=== PATIENT | male | born 1995 | race Caucasian/White ===

== ENCOUNTER 2017-11-03 16:45 | Emergency (ER) | payer SELFPAY ==
[2017-11-03] MEDS ORDERED: Ketorolac Tromethamine 30 MG/ML VIAL ONE (17:39)
== END 2017-11-03 17:51 | disposition home or self-care (01) ==
LOC: ERS 16:45
DX: K02.9 Dental caries, unspecified (principal); H65.91 Unspecified nonsuppurative otitis media, right ear; F17.210 Nicotine dependence, cigarettes, uncomplicated
CPT/HCPCS: 99282; J1885

== ENCOUNTER 2023-04-10 20:58 | Emergency (ER) | payer SELFPAY ==
[2023-04-11 00:18] LABS: SARS-CoV-2 NAA Rapid Test Not Detected (NotDetected)
== END 2023-04-10 22:37 | disposition home or self-care (01) ==
LOC: ERS 20:58
DX: B34.9 Viral infection, unspecified (principal); F17.210 Nicotine dependence, cigarettes, uncomplicated; Z20.822 Contact with and (suspected) exposure to COVID-19
CPT/HCPCS: 99283

== ENCOUNTER 2023-07-07 20:58 | Emergency (ER) | payer SELFPAY | END 2023-07-07 21:40 | disposition home or self-care (01) | LOC: ERS 20:58 | DX: R11.2 Nausea with vomiting, unspecified (principal) | CPT/HCPCS: 99283 ==

== ENCOUNTER 2024-05-07 19:03 | Emergency (ER) | payer SELFPAY | END 2024-05-07 20:25 | disposition home or self-care (01) | LOC: ERS 19:03 | DX: B34.9 Viral infection, unspecified (principal); F17.210 Nicotine dependence, cigarettes, uncomplicated | CPT/HCPCS: 87081; 87428; 87430; 99283 ==

== ENCOUNTER 2024-06-05 19:25 | Emergency (ER) | payer SELFPAY | END 2024-06-05 21:37 | disposition home or self-care (01) | LOC: ERS 19:25 | DX: J45.901 Unspecified asthma with (acute) exacerbation (principal); J20.9 Acute bronchitis, unspecified; F17.210 Nicotine dependence, cigarettes, uncomplicated | CPT/HCPCS: 71045 ==